=== PATIENT | male | born 1995 | race American Indian/Alaskan Native ===

== ENCOUNTER 2017-12-04 12:21 | Emergency (ER) | payer SELFPAY ==
[2017-12-04 12:33] VITALS: BP 140/79
--- NOTE | 2017-12-04 13:52 | Emergency Department Report ---
ED Abdominal Pain HPI - General Chief Complaint: Abdominal Pain Stated Complaint: ABD PAIN Time Seen by Provider: 12/04/17 13:49 Source: patient Mode of arrival: Ambulatory Limitations: No Limitations - History of Present Illness MD Complaint: abdominal pain -: Gradual, days(s) Location: diffuse Migration to: no migration Quality: cramping Consistency: intermittent Improves With: nothing Associated Symptoms: denies other symptoms. denies: nausea, vomiting, diarrhea , fever, chills, constipation (SMALL BM TODAY- N), dysuria, hematemesis, hematochezia, melena, hematuria, anorexia, syncope, other - Related Data Previous Rx's Medication Instructions Recorded Last Taken Type Magnesium Citrate [Citrate of 300 ml PO NOW #1 bottle 12/04/17 Unknown Rx Magnesia] Polyethylene Glycol 3350 [Miralax 17 gm PO QDAY #30 packet 12/04/17 Unknown Rx 3350] Allergies Allergy/AdvReac Type Severity Reaction Status Date / Time Sulfa (Sulfonamide Allergy Unknown Verified 12/04/17 12:33 Antibiotics) ED Review of Systems ROS: Stated complaint: ABD PAIN Other details as noted in HPI Comment: All other systems reviewed and negative Constitutional: denies: chills Eyes: denies: eye pain ENT: as per HPI. denies: throat pain Respiratory: denies: cough Cardiovascular: denies: dyspnea on exertion Endocrine: denies: excessive sweating Gastrointestinal: as per HPI, abdominal pain. denies: nausea, vomiting, diarrhea, constipation, hematemesis, melena, hematochezia Genitourinary: denies: urgency Musculoskeletal: denies: back pain Skin: denies: rash Neurological: denies: weakness Psychiatric: denies: depression Hematological/Lymphatic: denies: easy bleeding ED Past Medical Hx - Past Medical History Previous Medical History?: No - Surgical History Past Surgical History?: No - Family History Family history: no significant - Social History Smoking Status: Never Smoker Substance Use Type: None - Medications Home Medications: Home Medications Medication Instructions Recorded Confirmed Last Taken Type Magnesium Citrate [Citrate of 300 ml PO NOW #1 bottle 12/04/17 Unknown Rx Magnesia] Polyethylene Glycol 3350 [Miralax 17 gm PO QDAY #30 packet 12/04/17 Unknown Rx 3350] ED Physical Exam - General Limitations: No Limitations General appearance: alert - Head Head exam: Present: atraumatic - Eye Eye exam: Present: normal appearance Pupils: Present: normal accommodation - ENT ENT exam: Present: mucous membranes moist - Neck Neck exam: Present: normal inspection - Respiratory Respiratory exam: Present: normal lung sounds bilaterally - Cardiovascular Cardiovascular Exam: Present: regular rate - GI/Abdominal GI/Abdominal exam: Present: soft, normal bowel sounds. Absent: distended, tenderness, guarding, rebound, rigid, diminished bowel sounds, hyperactive bowel sounds, hypoactive bowel sounds, organomegaly, mass, bruit, pulsatile mass , hernia - Rectal Rectal exam: Present: deferred - exam: Present: normal inspection External exam: Present: normal external exam - Extremities Exam Extremities exam: Present: normal inspection, full ROM - Back Exam Back exam: Present: normal inspection, full ROM. Absent: tenderness, CVA tenderness (R), CVA tenderness (L) - Neurological Exam Neurological exam: Present: alert, oriented X3, CN II-XII intact, normal gait, reflexes normal - Psychiatric Psychiatric exam: Present: normal affect, normal mood - Skin Skin exam: Present: warm, dry ED Course Vital Signs 12/04/17 12:30 Temperature 98.1 F Pulse Rate 76 Respiratory 16 Rate Blood Pressure 140/79 O2 Sat by Pulse 99 Oximetry ED Medical Decision Making - Radiology Data Radiology results: report reviewed, image reviewed - Medical Decision Making XRAY NOTED STOOL NOTED THROUGH COLON OTHERWISE HEALTHY NON TOXIC NO FEVER NO N/V/D TAKING PO AMBULATORY - Differential Diagnosis ABD PAIN GASTRITIS V CONSTIPATION Critical care attestation.: If time is entered above; I have spent that time in minutes in the direct care of this critically ill patient, excluding procedure time. ED Disposition Clinical Impression: Constipation Disposition: DC- TO HOME OR SELFCARE Is pt being admited?: No Does the pt Need Aspirin: No Condition: Stable Instructions: Constipation (ED), High Fiber Diet (ED) Additional Instructions: DRINK A LOT OF WATER HIGH FIBER DIET MEDS ORDERED TODAY AVOID CONSTIPATING FOODS EXERCISE FOLLOW UP WITH PCP REFERRAL TODAY Prescriptions: Magnesium Citrate [Citrate of Magnesia] 300 ml PO NOW #1 bottle Polyethylene Glycol 3350 [Miralax 3350] 17 gm PO QDAY #30 packet Referrals: TASHA VIZCAINO JR, MD [Staff Physician] - 3-5 Days Time of Disposition: 14:41
[2017-12-04] MEDS ORDERED: CEPHULAC PO ONE (14:43)
--- NOTE | 2017-12-04 14:54 | XRay Report ---
ABDOMEN, 2 views: History: Abdominal pain. There is no evidence of free air beneath the diaphragms. The gas pattern within the abdomen is unremarkable. There is no evidence of bowel dilatation, significant air-fluid levels, or pathologic calcifications. Organ shadows are unremarkable. IMPRESSION: Unremarkable abdomen.
== END 2017-12-04 15:25 | disposition home or self-care (01) ==
LOC: ED 12:21
DX: K59.00 Constipation, unspecified (principal); Z88.2 Allergy status to sulfonamides
CPT/HCPCS: 74019; 99283